=== PATIENT | male | born 1945 | race Caucasian/White ===

== ENCOUNTER → 2016-10-31 | Outpatient (CLI) | payer MEDICARE ==
[~2016-10-31] MED LIST: OXYC-360 PO; PROM25SU8 PO; PROP20TA24 PO; SIMV10TA OR; TAMS0.4C67 PO
== END ==
LOC: PLAB 11:11
PROVIDERS: ATTEND Urology
DX: N40.1 Benign prostatic hyperplasia with lower urinary tract symptoms (principal)
CPT/HCPCS: 36415; 84153